=== PATIENT | female | born 1990 | race African-American/Black ===

== ENCOUNTER 2020-10-03 13:01 | Outpatient (REF) | payer OTHER, SELFPAY ==
[2020-10-03 14:13] LABS: MANUAL DIFF FLAG NO
[2020-10-03 14:17] LABS: Basophils Percent Auto 0.2 % (0-2); Eosinophils Percent Auto 0.9 % (0-4); Hematocrit 35.8 % (37-47); Hemoglobin 10.8 g/dl (12.0-16.0); Imm Gran Abs Auto 0.01 X10*3/uL (0.00-0.03); Imm Gran Pct Auto 0.2 % (0.0-0.4); Lymphocytes Absolute Auto 2.3 X10*3/uL (1.2-4.9); Lymphocytes Percent Auto 50.5 % (20-40); Mean Corpuscular HGB Conc 30.2 g/dl (31.0-35.0); Mean Corpuscular Hemoglobin 24.9 pg (27.0-33.0); Mean Corpuscular Volume 82.5 fL (80-98); Mean Platelet Volume 10.3 fL (9.4-12.3); Monocytes Absolute Auto 0.3 X10*3/uL (0.1-1.2); Monocytes Percent Auto 6.5 % (2-11); Neutrophils Absolute Auto 1.9 X10*3/uL (2.0-8.3); Neutrophils Percent Auto 41.7 % (45-73); Platelet Count 326 X10*3/uL (160-400); Red Blood Count 4.34 X10*6/uL (4.20-5.50); Red Cell Distribution Width 14.6 % (11.0-16.0); White Blood Count 4.6 X10*3/uL (4.8-10.8)
[2020-10-03 14:41] LABS: Anion Gap 10 (12-20); Blood Urea Nitrogen 10 mg/dL (9-16); Calcium 9.4 mg/dL (8.4-10.2); Carbon Dioxide 28 mmol/L (22-29); Chloride 104 mmol/L (96-108); Estimated Glomerular Filt Rate > 60; Glucose Fasting 76 mg/dL (60-99); Sodium 138 mmol/L (135-145)
== END 2020-10-03 13:02 | disposition home or self-care (01) ==
LOC: HO.LAB 13:01
PROVIDERS: Visit Provider Nurse Practitioner Family
DX: R07.9 Chest pain, unspecified (principal)
CPT/HCPCS: 36415; 80048; 85025

== ENCOUNTER 2020-10-10 10:21 | Outpatient (REF) | payer OTHER, SELFPAY ==
[2020-10-10 10:39] LABS: COVID-19 Test Positive (Negative)
== END 2020-10-10 10:22 | disposition home or self-care (01) ==
LOC: HO.EMPCOV 10:21
PROVIDERS: Visit Provider Internal Medicine
DX: Z20.828 Contact with and (suspected) exposure to other viral communicable diseases (principal)
CPT/HCPCS: 87635; C9803

== ENCOUNTER 2020-10-31 13:20 | Outpatient (REF) | payer OTHER, SELFPAY ==
[2020-11-01 08:31] LABS: BV Int Neg Control Negative (Negative); BV Int Pos Control Positive (Positive)
[2020-11-02 04:47] LABS: C. trachomatis RNA TMA NOT DETECTED (NOT DETECTED); N. gonorrhoeae RNA TMA NOT DETECTED (NOT DETECTED)
== END 2020-10-31 13:21 | disposition home or self-care (01) ==
LOC: HO.LAB 13:20
PROVIDERS: Visit Provider Advanced Practice Midwife
DX: N89.8 Other specified noninflammatory disorders of vagina (principal)
CPT/HCPCS: 82710; 87480; 87491; 87510; 87591; 87660

== ENCOUNTER 2020-12-19 09:24 | Outpatient (REF) | payer OTHER, SELFPAY | END 2020-12-19 09:25 | disposition home or self-care (01) | LOC: HO.LAB 09:24 | PROVIDERS: Visit Provider Internal Medicine | DX: Z20.822 Contact with and (suspected) exposure to COVID-19 (principal) | CPT/HCPCS: 36415; C9803; U0003; U0005 ==

== ENCOUNTER 2021-01-23 11:23 | Outpatient (REF) | payer OTHER, SELFPAY ==
[2021-01-23 17:53] LABS: CT PCR NOT DETECTED (Not Detect.); NG PCR NOT DETECTED (Not Detect.)
[2021-01-24 09:53] LABS: BV Int Neg Control Negative (Negative); BV Int Pos Control Positive (Positive)
== END 2021-01-23 11:24 | disposition home or self-care (01) ==
LOC: HO.LAB 11:23
PROVIDERS: Visit Provider Advanced Practice Midwife
DX: Z01.411 Encounter for gynecological examination (general) (routine) with abnormal findings (principal); Z30.431 Encounter for routine checking of intrauterine contraceptive device; N63.23 Unspecified lump in the left breast, lower outer quadrant; N63.12 Unspecified lump in the right breast, upper inner quadrant; Z20.2 Contact with and (suspected) exposure to infections with a predominantly sexual mode of transmission
CPT/HCPCS: 87480; 87491; 87510; 87591; 87660; 88142

== ENCOUNTER → 2021-03-01 08:53 | Outpatient (BNVA) | payer OTHER, SELFPAY | PROVIDERS: Visit Provider Advanced Practice Midwife ==

== ENCOUNTER 2021-03-15 12:31 | Outpatient (REF) | payer OTHER, SELFPAY ==
--- NOTE | ~2021-03-15 | US_ITS ---
Diagnostic right breast ultrasound is described in single combined report along with the diagnostic contralateral left breast under accession number [id number].
--- NOTE | ~2021-03-15 | US_ITS ---
EXAMINATION: US DIAGNOSTIC ULTRASOUND BREAST, RIGHT US DIAGNOSTIC ULTRASOUND BREAST, LEFT CLINICAL INFORMATION: Chronic cyclical pain left breast 12:00 to 1:00 for approximately one year. Clinical exam notes palpable areas of fullness 3:00 position left breast and 2:00 position right breast. Age 30. No prior breast imaging. No known family history breast cancer. No discharge. COMPARISON: None. TECHNIQUE: Ultrasound bilateral breasts is targeted to the areas of clinical concern using grayscale imaging and color Doppler without and with harmonics. Left breast is imaged 12:00 through 4:00 and right breast is imaged upper inner quadrant. FINDINGS: Right: There is no focal suspicious finding. There is no cystic or solid mass, architectural abnormality, duct ectasia, or edema in the soft tissue planes. Left: There is no focal suspicious finding. There is no cystic or solid mass, architectural abnormality, duct ectasia, or edema in the soft tissue planes. Results are discussed with the patient at time of visit. US/US breast LT limited IMPRESSION: Normal study. ASSESSMENT: BI-RADS 1: Negative RECOMMENDATION: 1. Patient's breast pain and clinical palpable areas should be managed based on the clinical impression. If clinically indicated, further evaluation may be considered with surgical consult. Decision to proceed with biopsy should be based on clinical grounds and degree of clinical concern. 2. Otherwise, routine annual screening mammography, beginning age 40, or earlier as clinical risk factors warrant. This patient's information was entered into a reminder system with a target due date for their next mammogram.
== END 2021-03-15 12:32 | disposition home or self-care (01) ==
LOC: HO.MAMMO 12:31
PROVIDERS: Visit Provider Advanced Practice Midwife
DX: N63.20 Unspecified lump in the left breast, unspecified quadrant (principal); N63.12 Unspecified lump in the right breast, upper inner quadrant
CPT/HCPCS: 76642

== ENCOUNTER 2021-06-12 13:51 | Outpatient (REF) | payer OTHER, SELFPAY ==
[2021-06-13 11:23] LABS: CT PCR NOT DETECTED (Not Detect.); NG PCR NOT DETECTED (Not Detect.)
[2021-06-13 11:51] LABS: BV Int Neg Control Negative (Negative); BV Int Pos Control Positive (Positive)
== END 2021-06-12 13:52 | disposition home or self-care (01) ==
LOC: HO.LAB 13:51
PROVIDERS: PCP Physician Assistant; Visit Provider Advanced Practice Midwife
DX: N76.0 Acute vaginitis (principal); B96.89 Other specified bacterial agents as the cause of diseases classified elsewhere; Z20.2 Contact with and (suspected) exposure to infections with a predominantly sexual mode of transmission
CPT/HCPCS: 87480; 87491; 87510; 87591; 87660

== ENCOUNTER → 2021-08-06 11:49 | Outpatient (BNVA) | payer OTHER, SELFPAY | PROVIDERS: PCP Physician Assistant; Visit Provider Advanced Practice Midwife ==

== ENCOUNTER 2021-09-04 08:22 | Emergency (ER) | payer OTHER, SELFPAY ==
--- NOTE | ~2021-09-04 | XR_ITS ---
EXAMINATION: XR CHEST CLINICAL INFORMATION: Chest pain COMPARISON: None TECHNIQUE: AP portable view of the chest was obtained. FINDINGS: No significant abnormality is noted involving the heart, lungs, mediastinum, bony thorax or soft tissues. XR/XR chest 1V IMPRESSION: No acute disease.
[2021-09-04 08:32] VITALS: BP 125/80; PULSE 81; RESP 18; TEMP 36.9; O2SAT 100; BMI 23.7
--- NOTE | 2021-09-04 08:35 | ECG_ITS ---
Test Reason : chest pain Blood Pressure : / mmHG Vent. Rate : 073 BPM Atrial Rate : 073 BPM P-R Int : 156 ms QRS Dur : 072 ms QT Int : 342 ms P-R-T Axes : 069 060 043 degrees QTc Int : 376 ms Normal sinus rhythm Normal ECG No previous ECGs available Referred By: Stacia Carrera Electronically Signed By:QUYEN HUTTON MD
[2021-09-04 09:13] LABS: MANUAL DIFF FLAG NO
[2021-09-04 09:17] LABS: Eosinophils Percent Auto 0.7 % (0-4); Hemoglobin 9.4 g/dl (12.0-16.0); Lymphocytes Percent Auto 46.8 % (20-40); Mean Corpuscular HGB Conc 30.3 g/dl (31.0-35.0); Mean Corpuscular Hemoglobin 23.9 pg (27.0-33.0); Mean Corpuscular Volume 78.7 fL (80-98); Mean Platelet Volume 9.8 fL (9.4-12.3); Monocytes Absolute Auto 0.5 X10*3/uL (0.1-1.2); Monocytes Percent Auto 10.6 % (2-11); Neutrophils Absolute Auto 1.8 X10*3/uL (2.0-8.3); Neutrophils Percent Auto 41.9 % (45-73); Platelet Count 314 X10*3/uL (160-400); Red Blood Count 3.94 X10*6/uL (4.20-5.50); Red Cell Distribution Width 14.2 % (11.0-16.0); White Blood Count 4.3 X10*3/uL (4.8-10.8)
[2021-09-04 09:24] LABS: D Dimer < 200 NG/ML
[2021-09-04 09:26] VITALS: BP 108/65; PULSE 79; RESP 20; TEMP 37.1; O2SAT 100
[2021-09-04 09:31] LABS: Appearance Urine HAZY; Color Urine YELLOW; Glucose Urine UA NEG (NEG); Leukocyte Esterase Urine TRACE (NEG); Nitrite Urine NEG (NEG); Specific Gravity - Urine >= 1.030 (1.005-1.025); UACC Culture Trigger YES; Urine Blood NEG (NEG); Urine Ketones NEG (NEG); Urine Protein NEG (NEG-TRACE)
[2021-09-04 09:32] LABS: Anion Gap 11 (12-20); Blood Urea Nitrogen 10 mg/dL (9-16); Calcium 8.7 mg/dL (8.4-10.2); Carbon Dioxide 22 mmol/L (22-29); Chloride 108 mmol/L (96-108); Creatinine Clr Calc Pharmacy 95.9; Estimated Glomerular Filt Rate > 60; Glucose Random 92 mg/dL (60-115); Lipase 16 U/L (8-78); Potassium 4.1 mmol/L (3.3-5.1); Sodium 137 mmol/L (135-145)
[2021-09-04 09:33] LABS: UPreg QC Valid YES; Urine Pregnancy NEGATIVE (NEGATIVE)
[2021-09-04 09:36] LABS: Troponin-I High Sensitivity < 3.5 ng/L (<3.5-17.0)
[2021-09-04 09:40] LABS: RBC Urine 0-2 /HPF (0); Squamous Epithelial Cell Urine 1+ /LPF
[2021-09-04 09:41] LABS: Bacteria Urine TRACE /LPF; Mucus Urine 2+ /LPF
--- NOTE | 2021-09-04 09:51 | ED_ITS ---
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 Chest pain for over a year since started to wear face mask, pain non specific description in the chest, no radiation, described as dull aching chest pain, aggravated by wearing a face mask, relieved by taking the face mask off, no recent travel, no lower extremity swelling or tenderness. No family history of heart disease or PE or young in the family. Patient otherwise healthy with no other medical problem. Related Data Home Medications Medication Instructions Recorded Confirmed copper 380 square mm intrauterine INTRAUTERINE 01/23/21 06/12/21 device (FondeadoraGard T 380A) Previous Rx's Medication Instructions Recorded albuterol sulfate 90 mcg/actuation 1 inh INHALATION Q4H PRN 30 Days 03/26/21 aerosol inhaler #8.5 g vitamin with calcium 1 tab PO DAILY #30 tab 08/06/21 no.72-iron 27 mg-folic acid 1 mg tablet ( Vitamins Plus Low Iron) Allergies Allergy/AdvReac Type Severity Reaction Status Date / Time metronidazole Allergy Mild Itching Verified 06/12/21 14:20 Review of Systems Review of Systems: All other systems are reviewed and are negative Constitutional: Reports as per HPI and Reports no additional constitutional complaints Eyes: Reports as per HPI and Reports no additional eye complaints Reports system reviewed and no additional complaints, except as documented Cardiovascular: Reports as per HPI and Reports no additional cardiovascular complaints Respiratory: Reports as per HPI and Reports no additional respiratory complaints Gastrointestinal: Reports as per HPI and Reports no additional gastrointestinal complaints Genitourinary: Reports no additional female genitourinary complaints Musculoskeletal: Reports no additional musculoskeletal complaints Skin/Breast: Reports system reviewed and no additional complaints, except as do cu Psychiatric: Reports no additional psychiatric complaints Endocrine: Reports no additional endocrine complaints Hematologic/Lymphatic: Reports no additional hematologic/lymphatic complaints Allergic/Immunologic: Reports no additional allergic/immunologic complaints Reports system reviewed and no additional complaints, except as documented and Reports Abnormal speech present [facility] Past Medical History Medical History Chest pain Family History Family History Father No problems noted. Mother No problems noted. Maternal Grandfather Cancer Diabetes Social History Social History Alcohol intake: never Advance Directives: No Advance Directives Information Provided: No Patient : No Gender identity: Female Physical Exam Vital Signs: Vital Signs: Last Vital Signs Temp 98.8 F 09/04/21 09:26 Pulse 79 09/04/21 09:26 Resp 20 09/04/21 09:26 BP 108/65 09/04/21 09:26 Pulse Ox 100 09/04/21 09:26 Body Mass Index 23.7 Vital signs have been reviewed as appeared to be correct. Blood pressure normal. Heart rate normal. Respiration rate normal. Temperature normal. Oxygen saturation normal. Appearance: Alert. Oriented X3. No acute distress. Head: Normal external exam. Normocephalic. Atraumatic. No Tyson signs noted. No raccoon eyes noted Eyes: PERRLA. EOMI. Conjunctiva and sclera normal. Eyelids normal. ENT: TM's Normal. Pharynx normal. Uvula midline. Moist mucous membranes. No trismus noted. No drooling noted. No muffled voice noted. Neck: Normal inspection. Neck supple. FROM. No adenopathy. Thyroid Normal. No meningeal signs. No neck mass noted. CVS: Normal heart rate and rhythm. Heart sound normal. No murmurs noted. Pulses normal throughout. Respiratory: No respiratory distress. Painless inspiration. Breath sounds normal. No wheezes/rales/rhonchi noted. Chest nontender. No accessory muscle usage noted or decreased air movement noted. Abdomen: Soft and nontender. Bowel sounds normal in all 4 quadrants. No distention noted. No organomegaly noted. No visible injury noted. Back: No CVA tenderness. Full range of motion noted. Skin: Skin warm and dry. Normal skin color. Normal skin turgor. No rashes/lesions/lacerations noted. Extremities: No lower extremity edema. Extremities exhibit normal range of motion. Extremities nontender. Neuro: Oriented X 3. Cranial nerve exam: II-XII are grossly intact No motor deficit. No sensory deficit. Reflexes normal. Course Course Course Narrative: Assessment and plan. Nonspecific chest pain, HEART score of 0, unremarkable EKG, troponin is negative, D-dimer also is unremarkable. Patient is anemic patient is mostly vegetarian do not eat red meat, patient was instructed to discuss with the PCP to adjust her diet or starting on iron. MDM - Chest Pain Medical Records Data Attestation: I reviewed the patient's medical records. Lab Data Attestation: I reviewed the patient's lab results. Result diagrams: 09/04/21 09:07 09/04/21 09:07 Labs: Lab Results 09/04/21 09/04/21 09/04/21 Range/Units 09:07 09:07 09:07 WBC 4.3 L (4.8-10.8) X10*3/uL RBC 3.94 L (4.20-5.50) X10*6/uL Hgb 9.4 L (12.0-16.0) g/dl Hct 31.0 L (37-47) % MCV 78.7 L (80-98) fL MCH 23.9 L (27.0-33.0) pg MCHC 30.3 L (31.0-35.0) g/dl RDW 14.2 (11.0-16.0) % Plt Count 314 (160-400) X10*3/uL MPV 9.8 (9.4-12.3) fL Immature Gran % (Auto) 0.0 (0.0-0.4) % Neut % (Auto) 41.9 L (45-73) % Lymph % (Auto) 46.8 H (20-40) % Hooker % (Auto) 10.6 (2-11) % Eos % (Auto) 0.7 (0-4) % Baso % (Auto) 0.0 (0-2) % Lymph # (Auto) 2.0 (1.2-4.9) X10*3/uL Hooker # (Auto) 0.5 (0.1-1.2) X10*3/uL Eos # (Auto) 0.0 (0.0-0.4) X10*3/uL Baso # (Auto) 0.0 (0.0-0.2) X10*3/uL Abs Immat Gran (auto) 0.00 (0.00-0.03) X10*3/uL Absolute Neuts (auto) 1.8 L (2.0-8.3) X10*3/uL Absolute Nucleated RBC 0.000 (0.0-0.012) X10*3/uL Nucleated RBC % (auto) 0.0 (0.0-0.2) /100WBC D-Dimer NG/ML Sodium 137 (135-145) mmol/L Potassium 4.1 (3.3-5.1) mmol/L Chloride 108 (96-108) mmol/L Carbon Dioxide 22 (22-29) mmol/L Anion Gap 11 L (12-20) BUN 10 (9-16) mg/dL Creatinine 0.81 (0.5-1.4) mg/dL Estim Creat Clear Calc 95.9 Estimated GFR > 60 Random Glucose 92 (60-115) mg/dL Calcium 8.7 D (8.4-10.2) mg/dL Troponin I High Sens < 3.5 (<3.5-17.0) ng/L Lipase 16 (8-78) U/L Urine Color Urine Appearance Urine pH (5.0-8.0) Ur Specific Chelsea (1.005-1.025) Urine Protein (NEG-TRACE) MG/DL Urine Glucose (UA) (NEG) MG/DL Urine Ketones (NEG) MG/DL Urine Blood (NEG) Urine Nitrite (NEG) Ur Leukocyte Esterase (NEG) Urine RBC (0) /HPF Urine WBC (0-4) /HPF Ur Squamous Epith Cells /LPF Urine Bacteria /LPF Urine Mucus /LPF Urine Test (NEGATIVE) 09/04/21 09/04/21 09/04/21 Range/Units 09:07 09:24 09:24 WBC (4.8-10.8) X10*3/uL RBC (4.20-5.50) X10*6/uL Hgb (12.0-16.0) g/dl Hct (37-47) % MCV (80-98) fL MCH (27.0-33.0) pg MCHC (31.0-35.0) g/dl RDW (11.0-16.0) % Plt Count (160-400) X10*3/uL MPV (9.4-12.3) fL Immature Gran % (Auto) (0.0-0.4) % Neut % (Auto) (45-73) % Lymph % (Auto) (20-40) % Hooker % (Auto) (2-11) % Eos % (Auto) (0-4) % Baso % (Auto) (0-2) % Lymph # (Auto) (1.2-4.9) X10*3/uL Hooker # (Auto) (0.1-1.2) X10*3/uL Eos # (Auto) (0.0-0.4) X10*3/uL Baso # (Auto) (0.0-0.2) X10*3/uL Abs Immat Gran (auto) (0.00-0.03) X10*3/uL Absolute Neuts (auto) (2.0-8.3) X10*3/uL Absolute Nucleated RBC (0.0-0.012) X10*3/uL Nucleated RBC % (auto) (0.0-0.2) /100WBC D-Dimer < 200 NG/ML Sodium (135-145) mmol/L Potassium (3.3-5.1) mmol/L Chloride (96-108) mmol/L Carbon Dioxide (22-29) mmol/L Anion Gap (12-20) BUN (9-16) mg/dL Creatinine (0.5-1.4) mg/dL Estim Creat Clear Calc Estimated GFR Random Glucose (60-115) mg/dL Calcium (8.4-10.2) mg/dL Troponin I High Sens (<3.5-17.0) ng/L Lipase (8-78) U/L Urine Color YELLOW Urine Appearance HAZY Urine pH 6.0 (5.0-8.0) Ur Specific Chelsea >= 1.030 H (1.005-1.025) Urine Protein NEG (NEG-TRACE) MG/DL Urine Glucose (UA) NEG (NEG) MG/DL Urine Ketones NEG (NEG) MG/DL Urine Blood NEG (NEG) Urine Nitrite NEG (NEG) Ur Leukocyte Esterase TRACE H (NEG) Urine RBC 0-2 (0) /HPF Urine WBC 1-4 (0-4) /HPF Ur Squamous Epith Cells 1+ /LPF Urine Bacteria TRACE /LPF Urine Mucus 2+ /LPF Urine Test NEGATIVE (NEGATIVE) Imaging Data Chest x-ray: Radiologist's impression: No acute disease. ECG Data ECG #1: Attestation: I personally reviewed and interpreted this ECG as follows: Interpretation: Normal sinus rhythm at 73 beats per minute, normal intervals, normal axis deviation, no ST-T changes. Discharge Plan Discharge Clinical Impression: Chest pain, Anemia Patient Disposition: Home, Self-Care Instructions: Anemia (ED) Prescriptions: No Action albuterol sulfate 90 mcg/actuation HFA aerosol inhaler 1 inh inhalation Q4H PRN (Reason: shortness of breath or wheezing) 30 Days Qty: 8.5 RF: 0 ParaGard T 380A 380 square mm intrauterine device intrauterine RF: 0 Vitamin Plus Low Iron 27 mg iron- 1 mg tablet 1 tab PO DAILY Qty: 30 RF: 11 Referrals: Physician,Unknown J [Primary Care Provider] - 2 days Stand Alone Forms: Work/School Release
== END 2021-09-04 10:17 | disposition home or self-care (01) ==
PROVIDERS: Emergency Provider Emergency Medicine
DX: R07.9 Chest pain, unspecified (principal); D64.9 Anemia, unspecified; N39.0 Urinary tract infection, site not specified
CPT/HCPCS: 36415; 71045; 80048; 81001; 81025; 83690; 84484; 85025; 85379; 87086; 87088; 87186; 93005; 99283

== ENCOUNTER → 2022-03-24 08:06 | Outpatient (BNVA) | payer OTHER, SELFPAY | PROVIDERS: Visit Provider Advanced Practice Midwife | DX: Z30.432 Encounter for removal of intrauterine contraceptive device (principal) | CPT/HCPCS: 58301 ==

== ENCOUNTER 2022-04-14 11:04 | Outpatient (REF) | payer OTHER, SELFPAY ==
[2022-04-15 06:29] LABS: CT PCR NOT DETECTED (Not Detect.); NG PCR NOT DETECTED (Not Detect.)
[2022-04-15 11:02] LABS: BV Int Neg Control Negative (Negative); BV Int Pos Control Positive (Positive)
== END 2022-04-14 11:05 | disposition home or self-care (01) ==
LOC: HO.LAB 11:04
PROVIDERS: Visit Provider Advanced Practice Midwife
DX: Z01.419 Encounter for gynecological examination (general) (routine) without abnormal findings (principal); Z11.3 Encounter for screening for infections with a predominantly sexual mode of transmission; Z20.2 Contact with and (suspected) exposure to infections with a predominantly sexual mode of transmission
CPT/HCPCS: 87480; 87491; 87510; 87591; 87660

== ENCOUNTER 2022-04-17 08:15 | Outpatient (REF) | payer OTHER, SELFPAY ==
[2022-04-17 08:44] LABS: Eosinophils Percent Auto 0.4 % (0-4); Hematocrit 36.8 % (37.0-47.0); Hemoglobin 11.1 g/dl (12.0-16.0); Imm Gran Abs Auto 0.01 X10*3/uL (0.00-0.03); Imm Gran Pct Auto 0.4 % (0.0-0.4); Lymphocytes Absolute Auto 1.8 X10*3/uL (1.2-4.9); MANUAL DIFF FLAG SCAN; Mean Corpuscular HGB Conc 30.2 g/dl (31.0-35.0); Mean Corpuscular Hemoglobin 23.7 pg (27.0-33.0); Mean Corpuscular Volume 78.6 fL (80.0-98.0); Mean Platelet Volume 9.8 fL (9.4-12.3); Monocytes Absolute Auto 0.2 X10*3/uL (0.1-1.2); Neutrophils Absolute Auto 0.6 x10*3/uL (2.0-8.3); Neutrophils Percent Auto 24.2 % (45-73); Platelet Count 309 X10*3/uL (160-400); Red Blood Count 4.68 X10*6/uL (4.20-5.50); Red Cell Distribution Width 15.6 % (11.0-16.0); SCAN SMEAR FLAG 1; White Blood Count 2.6 X10*3/uL (4.8-10.8)
[2022-04-17 09:12] LABS: Alanine Aminotransferase 12 U/L (0-31); Albumin Level 4.5 g/dL (3.5-5.0); Alkaline Phosphatase 35 U/L (39-117); Anion Gap 9 (12-20); Aspartate Amino Transferase 22 U/L (5-31); Bilirubin Total 0.4 mg/dL (0.0-1.0); Blood Urea Nitrogen 9 mg/dL (9-16); Calcium 9.2 mg/dL (8.4-10.2); Carbon Dioxide 27 mmol/L (22-29); Chloride 107 mmol/L (96-108); Cholesterol 144 mg/dL; Estimated Glomerular Filt Rate > 60; Glucose Fasting 96 mg/dL (60-99); HDL Cholesterol 46 mg/dL; Iron 34 mcg/dL (30-160); LDL Cholesterol Calculated 93 mg/dl; Percent Iron Saturation 8 % (15-50); Potassium 4.2 mmol/L (3.3-5.1); Sodium 139 mmol/L (135-145); Total Iron Binding Capacity 402 mcg/dL (228-428); Total Protein 7.7 g/dL (6.5-8.0); Triglycerides 25 mg/dL; Unsaturated Iron Binding 368 ug/dL
[2022-04-17 09:14] LABS: SLIDE REVIEW VERIFIED
[2022-04-19 20:56] LABS: TS Negative Control Passed; TS Panel A 0; TS Panel B 0; TS Positive Control Passed; TSpotTB Negative (Negative)
== END 2022-04-17 08:16 | disposition home or self-care (01) ==
LOC: HO.LAB 08:15
PROVIDERS: PCP Nurse Practitioner Family; Visit Provider Nurse Practitioner Family
DX: D64.9 Anemia, unspecified (principal); E78.00 Pure hypercholesterolemia, unspecified; I10 Essential (primary) hypertension; Z11.1 Encounter for screening for respiratory tuberculosis
CPT/HCPCS: 36415; 80053; 80061; 83540; 85025; 86481

== ENCOUNTER 2024-02-17 10:28 | Outpatient (REF) | payer SELFPAY ==
[2024-02-17 10:58] LABS: Appearance Urine Cloudy; Color Urine Yellow; Glucose Urine UA Negative (Negative); Leukocyte Esterase Urine Small (1+) (Negative); Nitrite Urine Negative (Negative); PH 5.5 (5.0-9.0); UMIC TRIGGER UACC YES; Urine Blood Negative (Negative); Urine Ketones Negative (Negative); Urine Protein Negative (Neg-Trace)
[2024-02-17 10:59] LABS: UPreg QC Valid YES; Urine Pregnancy NEGATIVE (NEGATIVE)
[2024-02-17 11:01] LABS: Bacteria Urine 1+ (None Seen); Hyaline Casts Urine 0-2 /LPF (0-2); RBC Urine 0-2 /HPF (0-2); UACC Culture Trigger YES; WBC Urine >50 /HPF (0-5)
== END 2024-02-17 10:29 | disposition home or self-care (01) ==
LOC: HO.LAB 10:28
PROVIDERS: Visit Provider Internal Medicine
DX: Z13.89 Encounter for screening for other disorder (principal)
CPT/HCPCS: 81001; 81025; 87086; 87088; 87186

== ENCOUNTER 2024-07-29 14:07 | Outpatient (AMB) | payer OTHER, SELFPAY ==
[2024-07-29 14:11] VITALS: BP 118/70; PULSE 93; O2SAT 98; BMI 23.9
--- NOTE | 2024-07-29 14:11 | A.OFFPC_ITS ---
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 Accompanied by: Son Allergies metronidazole Allergy (Mild, Verified 07/29/24 14:31) Itching Medication List - Last Reconciled 07/29/24 by Meenu Keyes PA-C albuterol sulfate 90 mcg/actuation 1 inh inhalation Q4H PRN 30 days Tobacco use date assessed: 07/29/24 Dental Screening Dental Screen Date: 07/29/24 Did you have a dental visit in the last 12 months?: Yes Did you have a dental problem in the last 6 months where you did not have access to dental care?: No Was dental information given to patient?: Patient has dentist HPI establish care HPI Details 34 year old female with past history of asthma and anemia coming to the office for the first time. She regularly follows with gynecology. 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 She was seen in urgent care last week for left-sided back pain and given a course of steroids which helped very mildly. Has no other concerns at this time [facility] Medical History Chest pain Surgical History No pertinent past surgical history Family History Father No problems noted. Mother No problems noted. Maternal Grandfather Cancer Diabetes Social History Household Members: Spouse Housing: House Are you a primary animal care service worker to a significant other at home: No Do you presently have visiting nurse or other home services: No Alcohol intake: current Alcohol intake frequency: holidays/special occasions only Patient Tobacco Use Status: Never used Tobacco Tobacco use type: Cigarette e-Cigarette/Vaping Use: Never Used Second Hand Smoke Exposure: No service: No Current occupational status: employed Gender identity: Female Cognitive needs: No Hearing needs: No Vision needs: Yes Female Reproductive History Menstrual Age of Menarche: 15 Questionnaire PHQ-9 Over the last 2 weeks, how often have you been bothered by any of the following problems? 1. Little interest or pleasure in doing things: not at all 2. Feeling down, depressed, or hopeless: not at all 3. Trouble falling or staying asleep, or sleeping too much: not at all 4. Feeling tired or having little energy: not at all 5. Poor appetite or overeating: not at all 6. Feeling bad about yourself - or that you are a failure or have let yourself or your family down: not at all 7. Trouble concentrating on things, such as reading the newspaper or watching television: not at all 8. Moving or speaking so slowly that other people could have noticed. Or the opposite - being so fidgety or restless that you have been moving around a lot more than usual: not at all 9. Thoughts that you would be better off or of hurting yourself in some way: not at all Total score: 0 Depression Screening Interpretation: Negative Depression Screening Done: Yes Source: Developed by Drs. Rafita Welsh, Marii Rodgers, Brennen Ivan and colleagues, with an educational lydia from [employer]. Thrive Questionnaire Date Thrive assessed: 07/29/24 I am a: Patient What is your living situation today?: I have a steady place to live Within the past 12 months, did the food you bought not last and you didn't have the money to get more?: I choose not to answer this question Within the past 12 months, did you worry whether your food would run out before you got money to buy more?: Never true Do you have trouble paying for medicines?: No Do you have trouble getting transportation to medical appointments?: No Do you have trouble paying your heating and electricity bill?: No Do you have trouble taking care of your child, family member or friend?: No Do you have trouble with day-to-day activities such as bathing, preparing meals, shopping, managing finances, etc.?: No Are you currently unemployed and looking for a job?: No Are you interested in more education?: No Please select the resources that you would like help with: Food Currently or been in a relationship where the following occur: No concerns reported THRIVE Score: 0 AUDIT C Alcohol Use Questionnaire (AUDIT-C) 1. How often do you have a drink containing alcohol?: Never Total Score: 0 DANIEL-7 AMB Questionnaire DANIEL-7 Date DANIEL - 7 assessed: 07/29/24 Feeling nervous, anxious, or on edge: 1 = Several days (Anxiety before exams at school and overthinks a lot.) Not being able to stop or control worryin = Not at all Worrying too much about different things: 0 = Not at all Trouble relaxin = Not at all Being so restless that it is hard to sit still: 0 = Not at all Becoming easily annoyed or irritable: 0 = Not at all Feeling afraid as if something awful might happen: 0 = Not at all Total DANIEL-7 score (0-4 normal; 5-9 mild; 10-14 moderate; 15-21 severe): 1 Source: Developed by Drs. Rafita Welsh, Marii Rodgers, Brennen Ivan and colleagues, with an educational lydia from [employer]. Review of Systems Const Denies body aches, Denies fatigue, Denies fever(s), Denies frequent falls, Denies headache(s) and Denies weakness Eyes Reports no additional complaints and Denies change in vision ENT Denies dysphagia, Denies dizziness, Denies facial pain, Denies headache(s), Denies nasal congestion and Denies odynophagia Card Denies chest pain, Denies syncope, Denies irregular heart rhythm, Denies leg edema, Denies lightheadedness and Denies dyspnea Resp Denies cough and Denies dyspnea GI Details: hemorrhoid the occasionally prolapses Denies constipation, Denies dysphagia, Denies dyspepsia, Denies diarrhea, Denies nausea, Denies odynophagia and Denies vomiting Denies urinary frequency, Denies dysuria, Denies urinary hesitancy and Denies urinary urgency Musc Reports back pain and Denies myalgias Skin/Breast Reports system reviewed and no additional complaints, except as documented Neuro Denies dizziness, Denies syncope, Denies frequent falls, Denies headache(s) and Denies weakness Psych Reports no additional complaints Endo Denies fatigue Physical exam (Primary Care) Vital Signs: Last Vital Signs Pulse 93 07/29/24 14:11 BP 118/70 09/20/24 14:11 Pulse Ox 98 07/29/24 14:11 Oxygen Delivery Method Room Air 07/29/24 14:11 BMI result Body Mass Index 23.9 Tobacco/Smoking Status: Tobacco use Status Tobacco use date assessed 07/29/24 07/29/24 14:13 Patient Tobacco Use Status Never used Tobacco 07/29/24 14:13 Tobacco use type Cigarette 07/29/24 14:13 e-Cigarette/Vaping Use Never Used 07/29/24 14:18 PHQ-9: PHQ-9 Score PHQ-9: Total score 0 07/29/24 14:18 Depression Screening Interpretation: Negative Thrive Assessment: Date of Thrive Assessment Date Thrive assessed 07/29/24 07/29/24 14:13 Currently or been in a relationship where the following occur: No concerns reported Const General: cooperative, healthy appearing, comfortable and no acute distress Orientation/consciousness: patient oriented x3 HENMT Head: Yes normocephalic Ears: hearing grossly normal bilaterally, external ears normal, TM's normal bi laterally and EAC's normal General nose exam: Normal external nose present Face and sinus: Yes normal facial exam and Yes sinuses nontender Mouth: Normal oral and palatal mucosa present and tongue normal Throat: Yes posterior oropharynx normal Eyes General: appearance normal, both eyes and all related structures Conjunctivae: conjunctivae normal Pupils: Equal, round and reactive pupils present EOM: EOMs intact bilaterally and No Nystagmus present Neck Neck: Yes normal visual inspection, Yes full ROM and Yes no lymphadenopathy Chest Chest palpation & inspection: normal inspection of the chest Resp Effort & Inspection: normal respiratory effort Auscultation: clear to auscultation bilaterally, no crackles, no rales, no rhonchi, no wheezes and breath sounds present Cardio Rate: regular rate Rhythm: regular rhythm Peripheral pulses: radial pulses present and dorsalis pedis present GI Inspection: Yes normal to inspection and No Abdominal wall edema Palpation (GI): Soft to palpation, not firm and nontender Auscultation: normal bowel sounds Rectal Exam - Female: deferred General: Yes no CVA tenderness Back/Spine/Pelvis Other: tenderness to left thoracic paraspinal muscles Back: no CVA tenderness Skin General skin exam: no rashes or lesions noted Neuro General: patient oriented x3 Cranial nerves: Yes Equal, round and reactive pupils present, Yes Midline tongue present, Yes Ability to bilaterally elevate shoulders present and No Nystagmus present Gait exam (Neuro): Normal gait present Extrem General: Yes normal to inspection, Yes full ROM, No no pedal edema and No edema Psych Speech and movement: Normal speech and movement present Affect: normal affect Insight: Good insight present (Psych) Judgement: Good judgement present (Psych) Assessment and Plan Assessment & Plan (1) Asthma: Code(s): J45.909 - Unspecified asthma, uncomplicated Plan: Previously diagnosed with asthma and uses her inhaler only as needed. Has not had to use her inhaler in several weeks and does not have any nighttime awakenings of shortness of breath. Continue to avoid triggers such as allergens smoke. (2) Anxiety: Code(s): F41.9 - Anxiety disorder, unspecified Plan: Patient states her anxiety is primarily centered around test taking and feels she can manage anxiety well and declines counseling or medication at this time. (3) Anemia: Code(s): D64.9 - Anemia, unspecified Plan: Ordered for updated blood work for further evaluation. (4) Back pain: Code(s): M54.9 - Dorsalgia, unspecified Plan: Patient has tenderness to palpation over left thoracic paraspinal muscles. She does mentioned she regularly moves patient is in occasionally will lift wrong. He has recently evaluated by urgent care who gave her a course of steroids which helped very mildly. Advised stretching and we will give muscle relaxer as needed for pain and may use Tylenol and ibuprofen for pain as well. Ordered for urinalysis to evaluate for possible UTI as well. (5) Physical exam: Code(s): Z00.00 - Encounter for general adult medical examination without abnormal findings Plan: Patient is up-to-date on all recommended routine screenings and vaccinations for her age. She regularly follows with gynecology and has a Pap smear scheduled for later this year. Updated blood work ordered at today's visit. We will follow up in 1 year sooner if new problems arise or pending blood work results. (6) Hemorrhoids: Code(s): K64.9 - Unspecified hemorrhoids Plan: Patient has a history of hemorrhoids and they will occasionally prolapse causing her discomfort and bleeding. Advised patient to avoid constipation and we can refer to general surgery if they become bothersome. Plan This note was constructed using voice recognition software. While every effort has been made to ensure accuracy and support dba, still areas may have been included sometimes these areas may affect the content or meeting of the given symptoms. Total time spent caring for the patient today was 30 minutes. This includes time spent before the visit reviewing the chart, time spent during the visit, and time spent after the visit and documentation. Orders: Orders Vitamin B12 and Folate Today Z00.00 - Encounter for general adult medical examination without abnormal findings UA CC w/rflx Micro + Cult Today R35.89 - Other polyuria Comprehensive Met. Panel Today Z00.00 - Encounter for general adult medical examination without abnormal findings Complete Blood Count Auto Diff Today Z00.00 - Encounter for general adult medical examination without abnormal findings Free T4 (Free Thyroxine) Today Z00.00 - Encounter for general adult medical examination without abnormal findings TSH reflex Free T4 Today Z00.00 - Encounter for general adult medical examination without abnormal findings Vitamin D 25-OH (D2 and D3) Today Z00.00 - Encounter for general adult medical examination without abnormal findings Medications: New cyclobenzaprine 5 mg PO BEDTIME 14 tabs 0RF cyclobenzaprine 5 mg PO BEDTIME 14 tabs 0RF Refilled albuterol sulfate 90 mcg/actuation 1 inh inhalation Q4H 30 days PRN 8.5 grams 0RF shortness of breath or wheezing J45.909 - Unspecified asthma, uncomplicated Coding Level of Care Code New Pt Level 3 (20184) New Pt Prev Care 18-39yr(81431 Diagnoses Asthma J45.909 Anxiety F41.9 Anemia D64.9 Back pain M54.9 Physical exam Z00.00 Hemorrhoids K64.9
== END 2024-07-29 14:47 | disposition home or self-care (01) ==
DX: Z00.00 Encounter for general adult medical examination without abnormal findings (principal); J45.909 Unspecified asthma, uncomplicated; M54.9 Dorsalgia, unspecified; F41.9 Anxiety disorder, unspecified; D64.9 Anemia, unspecified; K64.9 Unspecified hemorrhoids

== ENCOUNTER → 2024-07-29 14:07 | Outpatient (BNVA) | payer OTHER, SELFPAY | DX: Z00.00 Encounter for general adult medical examination without abnormal findings (principal); J45.909 Unspecified asthma, uncomplicated; F41.9 Anxiety disorder, unspecified; D64.9 Anemia, unspecified; M54.9 Dorsalgia, unspecified; K64.9 Unspecified hemorrhoids; Z79.52 Long term (current) use of systemic steroids | CPT/HCPCS: 99202; 99385 ==

== ENCOUNTER 2024-08-04 15:56 | Outpatient (REF) | payer OTHER, SELFPAY ==
[2024-08-04 18:13] LABS: Basophils Percent Auto 0.4 % (0-2); Eosinophils Absolute Auto 0.1 X10*3/uL (0.0-0.4); Eosinophils Percent Auto 1.2 % (0-4); Hematocrit 37.5 % (37.0-47.0); Hemoglobin 11.9 g/dl (12.0-16.0); Imm Gran Abs Auto 0.04 X10*3/uL (0.00-0.03); Imm Gran Pct Auto 0.8 % (0.0-0.4); Lymphocytes Absolute Auto 1.8 X10*3/uL (1.2-4.9); Lymphocytes Percent Auto 36.6 % (20-40); MANUAL DIFF FLAG NO; Mean Corpuscular HGB Conc 31.7 g/dl (31.0-35.0); Mean Corpuscular Hemoglobin 26.4 pg (27.0-33.0); Mean Corpuscular Volume 83.3 fL (80.0-98.0); Mean Platelet Volume 10.2 fL (9.4-12.3); Monocytes Absolute Auto 0.5 X10*3/uL (0.1-1.2); Monocytes Percent Auto 9.7 % (2-11); Neutrophils Absolute Auto 2.5 x10*3/uL (2.0-8.3); Neutrophils Percent Auto 51.3 % (45-73); Platelet Count 255 X10*3/uL (160-400); Red Cell Distribution Width 13.7 % (11.0-16.0)
[2024-08-04 18:15] LABS: Appearance Urine Clear; Color Urine Yellow; Glucose Urine UA Negative (Negative); Leukocyte Esterase Urine Small (1+) (Negative); Nitrite Urine Negative (Negative); UMIC TRIGGER UACC YES; Urine Blood Large (3+) (Negative); Urine Ketones Negative (Negative); Urine Protein Trace mg/dL (Neg-Trace)
[2024-08-04 18:35] LABS: Bacteria Urine 1+ (None Seen); Hyaline Casts Urine 0-2 /LPF (0-2); RBC Urine 0-2 /HPF (0-2); Squamous Epithelial Cell Urine 0-2 /HPF (0-2); UACC Culture Trigger YES
[2024-08-04 18:52] LABS: Alanine Aminotransferase 8 U/L (0-31); Albumin Level 4.3 g/dL (3.5-5.0); Alkaline Phosphatase 32 U/L (39-117); Anion Gap 12 (12-20); Aspartate Amino Transferase 16 U/L (5-31); Bilirubin Total 0.3 mg/dL (0.0-1.0); Blood Urea Nitrogen 10 mg/dL (9-16); Calcium 9.6 mg/dL (8.4-10.2); Carbon Dioxide 25 mmol/L (22-29); Chloride 107 mmol/L (96-108); Estimated Glomerular Filt Rate > 60; Glucose Random 84 mg/dL (60-115); Potassium 3.8 mmol/L (3.3-5.1); Sodium 140 mmol/L (135-145); Total Protein 7.3 g/dL (6.5-8.0)
[2024-08-04 19:08] LABS: Free T4 (Free Thyroxine) 0.92 ng/dL (0.71-1.85); TSH reflex Free T4 1.71 uIU/mL (0.32-4.0)
[2024-08-04 19:20] LABS: Vitamin B12 321 pg/mL (200-900)
[2024-08-08 16:24] LABS: Vitamin D 25-OH, D2 <4 ng/mL; Vitamin D 25-OH, D3 15 ng/mL; Vitamin D 25-OH, Total 15 ng/mL (30-100)
== END 2024-08-04 15:57 | disposition home or self-care (01) ==
LOC: HO.LAB 15:56
DX: Z00.00 Encounter for general adult medical examination without abnormal findings (principal)
CPT/HCPCS: 36415; 80053; 81001; 82306; 82607; 82746; 84439; 84443; 85025; 87086; 87088; 87186

== ENCOUNTER 2025-06-06 08:03 | Outpatient (REF) | payer OTHER, SELFPAY ==
[2025-06-06 15:35] LABS: Bacterial Vaginosis PCR POSITIVE (Negative); Candida Group PCR NOT DETECTED (Not Detect); Candida glab krusei PCR NOT DETECTED (Not Detect); Trichomonas vaginalis PCR NOT DETECTED (Not Detect)
[2025-06-06 16:04] LABS: CT PCR NOT DETECTED (Not Detect.); NG PCR NOT DETECTED (Not Detect.)
== END 2025-06-06 08:04 | disposition home or self-care (01) ==
LOC: HO.LNP 08:03
PROVIDERS: Visit Provider Advanced Practice Midwife
DX: Z01.411 Encounter for gynecological examination (general) (routine) with abnormal findings (principal); N63.0 Unspecified lump in unspecified breast; Z11.3 Encounter for screening for infections with a predominantly sexual mode of transmission
CPT/HCPCS: 81515; 87491; 87591; 99212; 99395

== ENCOUNTER 2025-06-06 08:03 | Outpatient (AMB) | payer OTHER, SELFPAY ==
--- NOTE | 2025-06-06 08:24 | MHC.OFFVIS ---
Vital Signs 06/06/25 08:31 Height 5 ft 6 in Weight 153 lb BMI 24.7 BP 104/68 Intake Visit Reasons: New patient Annual Intake Note: Per patient, paragard placed after she gave 2 years ago. Pap smear was also done at the time, states normal hx. Flatwork Supervisor: Flatwork Supervisor Present (BISHOP Gilman) Accompanied by: Self / Same As Patient Allergies metronidazole Allergy (Mild, Verified 07/29/24 14:31) Itching Is last menstrual period known: Yes Last menstrual period: 05/13/25 Post menopausal: No Patient : No HPI Comments Details: Patient is a premenopausal woman presenting for new patient annual examination. Chenille Machine Operator concerns: None. Regular monthly menses with Kyleena IUD inserted in 2022. Currently is sexually active. She denies vaginal itching or irritation. STI screening offered; she accepts, declines blood work. She tries to eat healthy and stays active with exercise. Denies family history of breast, ovarian or colon cancer. She denies any history of any previous breast biopsy, breast injury, nipple discharge or other concerns. Breast ultrasounds completed in 2020 for bilateral lumpy breast. Last pap smear 2 yrs. ago, negative. [facility] Medical History (Updated 06/06/25 @ 09:05 by Julia Glass CNM) IUD (intrauterine device) in place Chest pain Surgical History No pertinent past surgical history Family History Father No problems noted. Mother No problems noted. 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, [employer] nursing grad 2026 Gender identity: Female Cognitive needs: No Hearing needs: No Vision needs: Yes Female Reproductive History Menstrual Age of Menarche: 15 Duration of menses: 3-5 days Date of last menstrual period: 05/13/25 control method: copper IUCD (Paragard) Total pregnancies: 1 Full term: 1 History of abnormal pap smear: No Review of Systems Const All systems reviewed & are unremarkable except as noted in HPI and below Reports as per HPI Eyes Reports no additional complaints ENT Reports no additional complaints Card Reports no additional complaints Resp Reports no additional complaints GI Reports as per HPI and Reports no additional complaints Reports as per HPI Musc Reports no additional complaints Skin/Breast Reports as per HPI Neuro Reports no additional complaints Psych Reports no additional complaints Endo Reports no additional complaints Marcelino/Lymph Reports no additional complaints Aller/Immun Reports no additional complaints Physical Exam Vital Signs: Last Vital Signs BP 104/68 06/06/25 08:31 BMI result Body Mass Index 24.7 Const General: cooperative, healthy appearing, no acute distress, well developed and alert Orientation/consciousness: patient oriented x3 HEENT Head: Yes normal to inspection Eyes General: appearance normal, both eyes and all related structures Neck Neck: Yes normal visual inspection Thyroid: Thyroid normal Chest Chest palpation & inspection: normal inspection of the chest and other (no puckering, dimpling, peau de orange, retraction, discharge, masses) Breast/axilla inspection: normal inspection of the breasts Breast/axilla palpation: abnormal palpation of the breast left mass (2 to 3 o'clock position) Resp Effort & Inspection: normal respiratory effort GI Inspection: Yes normal to inspection Palpation (GI): Soft to palpation Rectal Exam - Female: deferred General: Yes bladder normal to palpation External Female Exam: normal external appearance and normal appearance of the urethra Speculum Exam - Vagina: normal appearance of the vagina, normal palpation and normal vaginal discharge Speculum Exam - Cervix: normal appearance of the cervix, normal palpation and Other cervical findings present (IUD strings present at the os) Bimanual exam- vagina & uterus: normal bimanual exam, normal palpation, uterine size normal, bladder normal to palpation, normal palpation and non-tender Bimanual Exam- Adnexa, other: no masses Skin General skin exam: no rashes or lesions noted Rashes: no rashes Neuro General: patient oriented x3 Cognition (Neuro): normal cognition Extrem General: Yes normal to inspection Psych Attitude: cooperative Thought process: Normal thought process present Assessment & Plan Assessment & Plan (1) Breast mass in female: Code(s): N63.0 - Unspecified lump in unspecified breast Category: Medical Plan: Discussed: Workup for breast evaluation to include diagnostic bilateral mammogram, and left breast limited ultrasound. Follow up in person for ultrasound results call sooner if there is any concerns. Surgical consult if indicated. The patient expressed understanding and agreement with the plan of care. All of her questions and concerns were addressed to the best of my ability. Total time I personally spent on visit and management today: ?15 minutes. Time spent included review of pertinent office notes in the electronic health record; review of laboratory and imaging results; review of personal family medical history; performing physical exam; discussing diagnosis and plan of care with the patient; documenting the encounter in the EMR. (2) Well woman exam with routine gynecological exam: Code(s): Z01.419 - Encounter for gynecological examination (general) (routine) without abnormal findings Category: Medical Plan Discussed: Current recommendations for pap smears per ASCCP guidelines. Breast awareness and periodic breast exams. Maintain a healthy lifestyle including a well balanced diet and routine exercise. Use condoms for STI and prevention. Patient verbalizes understanding and agrees to the plan of care. She was given opportunity to ask questions and all questions were answered to the best of my ability. RTO in one year for annual freezer assistant examination. This note is constructed using voice recognition software. While every effort has been made to ensure accuracy, multi operation machine operator errors may have been included. Orders: Orders MM tomosynthesis diagnostic BI Today N63.0 - Unspecified lump in unspecified breast, Z12.31 - Encounter for screening mammogram for malignant neoplasm of breast CT NG by PCR Vag/Cerv Today Z11.3 - Encounter for screening for infections with a predominantly sexual mode of transmission breast LT limited Today N63.0 - Unspecified lump in unspecified breast Bacterial Vaginosis Panel Today Z11.3 - Encounter for screening for infections with a predominantly sexual mode of transmission Coding Level of Care Code Est Pt Level 2 (66807) Est Pt Prev Care 18-39y(53539) Diagnoses Breast mass in female N63.0 Well woman exam with routine gynecological exam Z01.419
[2025-06-06 08:31] VITALS: BP 104/68; BMI 24.7
== END 2025-06-06 09:17 | disposition home or self-care (01) ==
LOC: HO.HWS 08:04
PROVIDERS: Visit Provider Advanced Practice Midwife
DX: Z01.419 Encounter for gynecological examination (general) (routine) without abnormal findings (principal); N63.0 Unspecified lump in unspecified breast
CPT/HCPCS: 99212; 99395; 99459

== ENCOUNTER 2025-06-14 07:52 | Outpatient (REF) | payer OTHER, SELFPAY ==
--- NOTE | ~2025-06-14 | MM_ITS ---
EXAMINATION: MM DIAGNOSTIC DIGITAL BREAST TOMOSYNTHESIS, BILATERAL Limited left breast ultrasound. CLINICAL INFORMATION: Left breast palpable lump upper outer quadrant. COMPARISON: Mammography: Comparison is made with relevant prior exams. TECHNIQUE: Digital breast mammography with tomosynthesis is performed in both the craniocaudal and mediolateral oblique views along with computer-aided detection (CAD). FINDINGS: The breasts are extremely dense, which lowers the sensitivity of mammography (ACR BI-RADS breast composition Category d). BB marker in the upper outer left breast without underlying abnormal finding at site of patient's palpable lump. There are no significant masses, abnormal calcifications, or other abnormalities. Targeted color Doppler ultrasound scanning in the left breast area of patient's palpable lump upper outer quadrant demonstrates normal fibronodular breast tissue. There is no sonographic abnormal finding to account for the patient's palpable lump. Results are provided to the patient at time of visit by the technologist. MM/MM tomosynthesis diagnostic BI IMPRESSION: Right: Negative. Left: No mammographic or sonographic abnormal finding to account for the patient's left breast palpable lump. Recommend clinical evaluation and follow-up. ASSESSMENT: BI-RADS BI-RADS 1 - Negative RECOMMENDATION: 1 year F/U This patient's information was entered into a reminder system with a target due date for their next mammogram. Electronically signed by: Idalmis Reed DO 06/14/2025 08:54 AM EDT
== END 2025-06-14 07:53 | disposition home or self-care (01) ==
LOC: HO.MAMMO 07:52
DX: Z12.31 Encounter for screening mammogram for malignant neoplasm of breast (principal); N63.21 Unspecified lump in the left breast, upper outer quadrant
CPT/HCPCS: 76642; 77062; 77066

== ENCOUNTER → 2025-06-14 08:30 | Outpatient (BNV) | payer OTHER, SELFPAY | PROVIDERS: Visit Provider Internal Medicine | DX: N63.21 Unspecified lump in the left breast, upper outer quadrant (principal) | CPT/HCPCS: 76642; 77062; 77066 ==

== ENCOUNTER 2025-06-21 08:42 | Outpatient (AMB) | payer OTHER, SELFPAY ==
--- NOTE | 2025-06-21 08:43 | MHC.OFFVIS ---
Intake Visit Reasons: Lab results/Breast diagnostic follow up Motorcycle Deliverer: Motorcycle Deliverer Present Allergies metronidazole Allergy (Mild, Verified 07/29/24 14:31) Itching Is last menstrual period known: Yes HPI Comments Details: Tele Health Visit Total time I personally spent on visit and management today: 13 minutes. Time spent included review of pertinent office notes in the electronic health record; review of laboratory and imaging results; review of personal family medical history; discussing diagnosis and plan of care with the patient; documenting the encounter in the EMR. Patient presents to discuss: Results of breast imaging. History of left breast mass 2 to 3 o'clock position on previous exam. Prior ultrasound in 2020. Admits to cyclic breast pain at times. [facility] Medical History (Updated 06/21/25 @ 09:00 by Julia Glass CNM) Extremely dense tissue of both breasts on mammography Dense breast tissue on mammogram IUD (intrauterine device) in place Chest pain Surgical History No pertinent past surgical history Family History Father No problems noted. Mother No problems noted. 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, [employer] nursing grad 2026 Gender identity: Female Cognitive needs: No Hearing needs: No Vision needs: Yes Female Reproductive History Menstrual Age of Menarche: 15 Review of Systems Const All systems reviewed & are unremarkable except as noted in HPI and below Endo Reports no additional complaints Physical Exam Const General: cooperative, healthy appearing and no acute distress Psych Appearance: well kempt Attitude: cooperative Thought process: Normal thought process present Telehealth Telehealth Telehealth Platform: [employer] Location of provider rendering services: practice address Location of patient: address on file Patient Identification confirmed using: Name, : Yes Telehealth method: video Patient verbally consented to treatment: Yes Patient verbally consented to billing insurance company: Yes Patient informed of any privacy concerns related to visit: Yes Results Reviewed Results Reviewed: [facility] [address] [place] [address] Mammography Report Signed Patient: Carmelina Jolly MR#: [id number] : 1990 Acct:[id number] Age/Sex: 34 / F ADM Date: 06/14/25 Loc: HO.MAMMO Attending Dr: Meenu Keyes PA-C Ordering Physician: Julia Glass CNM Results: 1Negative Date of Service: 06/14/25 Follow Up: 1 Year From Original Mammogram Procedure(s): MM tomosynthesis diagnostic BI Accession Number(s): [id number] cc: Meenu Keyes PA-C; Julia Glass CNM~ EXAMINATION: MM DIAGNOSTIC DIGITAL BREAST TOMOSYNTHESIS, BILATERAL Limited left breast ultrasound. CLINICAL INFORMATION: Left breast palpable lump upper outer quadrant. COMPARISON: Mammography: Comparison is made with relevant prior exams. TECHNIQUE: Digital breast mammography with tomosynthesis is performed in both the craniocaudal and mediolateral oblique views along with computer-aided detection (CAD). FINDINGS: The breasts are extremely dense, which lowers the sensitivity of mammography (ACR BI-RADS breast composition Category d). BB marker in the upper outer left breast without underlying abnormal finding at site of patient's palpable lump. There are no significant masses, abnormal calcifications, or other abnormalities. Targeted color Doppler ultrasound scanning in the left breast area of patient's palpable lump upper outer quadrant demonstrates normal fibronodular breast tissue. There is no sonographic abnormal finding to account for the patient's palpable lump. Results are provided to the patient at time of visit by the technologist. MM/MM tomosynthesis diagnostic BI IMPRESSION: Right: Negative. Left: No mammographic or sonographic abnormal finding to account for the patient's left breast palpable lump. Recommend clinical evaluation and follow-up. ASSESSMENT: BI-RADS BI-RADS 1 - Negative RECOMMENDATION: 1 year F/U This patient's information was entered into a reminder system with a target due date for their next mammogram. Electronically signed by: Idalmis Reed DO 06/14/2025 08:54 AM EDT Dictated By: Idalmis Reed DO Signed By: <Electronically signed by Idalmis Reed DO in OV> 06/14/25 0854 DD/ 0755 TD/TT: 06/14/25 0811 Railroad Detective: Assessment & Plan Assessment & Plan (1) Mastalgia: Code(s): N64.4 - Mastodynia Plan: See notes below. (2) Breast mass in female: Code(s): N63.0 - Unspecified lump in unspecified breast Category: Medical Plan Discussed breast imaging studies: Right: Negative. Left: No mammographic or sonographic abnormal finding to account for the patient's left breast palpable lump. Recommend clinical evaluation and follow-up. ASSESSMENT: BI-RADS BI-RADS 1 - Negative RECOMMENDATION: 1 year F/U Cyclic breast pain common with menstrual cycling changes, advised to notify the office for further evaluation if pain is persistent and increased including unilateral region or any other breast concerns. Discuss referral to breast surgery for consultation due to extreme breast density and findings of breast thickening with negative imaging results, risk of missing early findings due to density with mammogram and ultrasound utilization. The patient expressed understanding and agreement with the plan of care. All of her questions and concerns were addressed to the best of my ability. This note is constructed using voice recognition software. While every effort has been made to ensure accuracy, general road supervisor errors may have been included. Orders: Referrals Breast Surgery Referral N63.0 - Unspecified lump in unspecified breast, R92.343 - Mammographic extreme density, bilateral breasts Coding Level of Care Code Tele Est Pt Level 3 (08676) Diagnoses Mastalgia N64.4 Breast mass in female N63.0
== END 2025-06-21 09:47 | disposition home or self-care (01) ==
LOC: HO.HWS 08:42
PROVIDERS: Visit Provider Advanced Practice Midwife
DX: N64.4 Mastodynia (principal); N63.0 Unspecified lump in unspecified breast
CPT/HCPCS: 99213

== ENCOUNTER 2025-07-31 13:36 | Outpatient (AMB) | payer OTHER, SELFPAY ==
[2025-07-31 13:07] VITALS: BP 116/72; PULSE 91; TEMP 36.3; O2SAT 99; BMI 22.9
--- NOTE | 2025-07-31 13:07 | A.OFFPC_ITS ---
Vital Signs 07/31/25 13:07 Height 5 ft 6 in Weight 142 lb 2 oz BMI 22.9 BP 116/72 Blood Pressure Location Lt brachial Position Sitting Pulse 91 Pulse Source Pulse Oximeter Temp 97.3 F Temp Source Temporal Artery Scan Pulse Oximetry (%) 99 Oxygen Delivery Method Room Air Intake Visit Reasons: Annual Exam Molder Hand Required: No Accompanied by: Self / Same As Patient Allergies metronidazole Allergy (Mild, Verified 07/31/25 14:20) Itching Medication List - Last Reconciled 07/31/25 by Meenu Keyes PA-C albuterol sulfate 90 mcg/actuation 1 inh inhalation Q4H PRN 30 days cholecalciferol (vitamin D3) 25 mcg PO DAILY multivitamin 1 tab PO DAILY PRN Tobacco use date assessed: 07/31/25 Dental Screening Dental Screen Date: 07/31/25 Did you have a dental visit in the last 12 months?: Yes Did you have a dental problem in the last 6 months where you did not have access to dental care?: No HPI Annual Exam HPI Details 35 year old female with past medical his tory of asthma, anxiety, alopecia last seen 07/2024 coming in for physical exam. In review of the notes, patient was seen by lime hide inspector 06/2025 for breast mass workup was negative with mammogram and ultrasound and advised to follow up for yearly testing. Patient tells us today she has been feeling generally well and does not have any acute concerns. She has noted 10 lb weight loss since last visit. Mammogram: 06/2025 follow up in 1 year Pap smear: Up-to-date with gynecology Vaccinations: Up-to-date [facility] Medical History Extremely dense tissue of both breasts on mammography Dense breast tissue on mammogram IUD (intrauterine device) in place Chest pain Surgical History No pertinent past surgical history Family History Father No problems noted. Mother No problems noted. 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 1. Little interest or pleasure in doing things: not at all 2. Feeling down, depressed, or hopeless: not at all 3. Trouble falling or staying asleep, or sleeping too much: not at all 4. Feeling tired or having little energy: not at all 5. Poor appetite or overeating: not at all 6. Feeling bad about yourself - or that you are a failure or have let yourself or your family down: not at all 7. Trouble concentrating on things, such as reading the newspaper or watching television: not at all 8. Moving or speaking so slowly that other people could have noticed. Or the opposite - being so fidgety or restless that you have been moving around a lot more than usual: not at all 9. Thoughts that you would be better off or of hurting yourself in some way: not at all Total score: 0 Depression Screening Interpretation: Negative Depression Screening Done: Yes Source: Developed by Drs. Rafita Welsh, Marii Rodgers, Brennen Ivan and colleagues, with an educational lydia from [employer]. Thrive Questionnaire Date Thrive assessed: 07/31/25 I am a: Patient What is your living situation today?: I have a steady place to live Within the past 12 months, did the food you bought not last and you didn't have the money to get more?: Never true Within the past 12 months, did you worry whether your food would run out before you got money to buy more?: Never true Do you have trouble paying for medicines?: No Do you have trouble getting transportation to medical appointments?: No Do you have trouble paying your heating and electricity bill?: No Do you have trouble taking care of your child, family member or friend?: No Do you have trouble with day-to-day activities such as bathing, preparing meals, shopping, managing finances, etc.?: No Are you currently unemployed and looking for a job?: No Are you interested in more education?: Yes Please select the resources that you would like help with: Childcare Currently or been in a relationship where the following occur: No concerns reported THRIVE Score: 0 AUDIT C Alcohol Use Questionnaire (AUDIT-C) 1. How often do you have a drink containing alcohol?: Monthly or less 2. How many drinks containing alcohol do you have on a typical day when you are drinking?: 1 or 2 3. How often do you have six or more drinks on one occasion?: Less than monthly Total Score: 2 DANIEL-7 AMB Questionnaire DANIEL-7 Date DANIEL - 7 assessed: 07/31/25 Feeling nervous, anxious, or on edge: 0 = Not at all Not being able to stop or control worryin = Not at all Worrying too much about different things: 0 = Not at all Trouble relaxin = Not at all Being so restless that it is hard to sit still: 0 = Not at all Becoming easily annoyed or irritable: 0 = Not at all Feeling afraid as if something awful might happen: 0 = Not at all Total DANIEL-7 score (0-4 normal; 5-9 mild; 10-14 moderate; 15-21 severe): 0 Source: Developed by Drs. Rafita Welsh, Marii Rodgers, rBennen Ivan and colleagues, with an educational lydia from [employer]. Review of Systems Const Denies body aches, Denies fatigue, Denies fever(s), Denies frequent falls, Denies headache(s) and Denies weakness Eyes Reports no additional complaints and Denies change in vision ENT Denies dysphagia, Denies dizziness, Denies facial pain, Denies headache(s), Denies nasal congestion and Denies odynophagia Card Denies chest pain, Denies syncope, Denies irregular heart rhythm, Denies leg edema, Denies lightheadedness and Denies dyspnea Resp Denies cough and Denies dyspnea GI Denies constipation, Denies dysphagia, Denies dyspepsia, Denies diarrhea, Denies nausea, Denies odynophagia and Denies vomiting Denies urinary frequency, Denies dysuria, Denies urinary hesitancy and Denies urinary urgency Musc Denies back pain and Denies myalgias Skin/Breast Reports system reviewed and no additional complaints, except as documented Neuro Denies dizziness, Denies syncope, Denies frequent falls, Denies headache(s) and Denies weakness Psych Reports no additional complaints Endo Denies fatigue Physical exam (Primary Care) Vital Signs: Last Vital Signs Temp 97.3 F 07/31/25 13:07 Pulse 91 07/31/25 13:07 BP 116/72 07/31/25 13:07 Pulse Ox 99 07/31/25 13:07 Oxygen Delivery Method Room Air 07/31/25 13:07 BMI result Body Mass Index 22.9 Tobacco/Smoking Status: Tobacco use Status Tobacco use date assessed 07/31/25 07/31/25 13:08 Patient Tobacco Use Status Never used Tobacco 07/31/25 13:08 Tobacco use type Cigarette 07/31/25 13:08 e-Cigarette/Vaping Use Never Used 07/31/25 13:08 PHQ-9: PHQ-9 Score PHQ-9: Total score 0 07/31/25 14:55 Depression Screening Interpretation: Negative Thrive Assessment: Date of Thrive Assessment Date Thrive assessed 07/31/25 07/31/25 13:08 Currently or been in a relationship where the following occur: No concerns reported Const General: cooperative, healthy appearing, comfortable and no acute distress Orientation/consciousness: patient oriented x3 HENMT Head: Yes normocephalic Ears: hearing grossly normal bilaterally, external ears normal, TM's normal bilaterally and EAC's normal General nose exam: Normal external nose present Face and sinus: Yes normal facial exam and Yes sinuses nontender Mouth: Normal oral and palatal mucosa present and tongue normal Throat: Yes posterior oropharynx normal Eyes General: appearance normal, both eyes and all related structures Conjunctivae: conjunctivae normal Pupils: Equal, round and reactive pupils present EOM: EOMs intact bilaterally and No Nystagmus present Neck Neck: Yes normal visual inspection, Yes full ROM and Yes no lymphadenopathy Chest Chest palpation & inspection: normal inspection of the chest Resp Effort & Inspection: normal respiratory effort Auscultation: clear to auscultation bilaterally, no crackles, no rales, no rhonchi, no wheezes and breath sounds present Cardio Rate: regular rate Rhythm: regular rhythm Peripheral pulses: radial pulses present and dorsalis pedis present GI Inspection: Yes normal to inspection and No Abdominal wall edema Palpation (GI): Soft to palpation, not firm and nontender Auscultation: normal bowel sounds Rectal Exam - Female: deferred General: Yes no CVA tenderness Back/Spine/Pelvis Back: no CVA tenderness Skin General skin exam: no rashes or lesions noted Neuro General: patient oriented x3 Cranial nerves: Yes Equal, round and reactive pupils present, Yes Midline tongue present, Yes Ability to bilaterally elevate shoulders present and No Nystagmus present Gait exam (Neuro): Normal gait present Extrem General: Yes normal to inspection, Yes full ROM, No no pedal edema and No edema Psych Speech and movement: Normal speech and movement present Affect: normal affect Insight: Good insight present (Psych) Judgement: Good judgement present (Psych) Coding Level of Care Code Est Pt Prev Care 18-39y(28027) Diagnoses Physical exam Z00.00 Anxiety F41.9 Asthma J45.909 Constipation K59.00 Assessment & Plan Assessment & Plan (1) Physical exam: Code(s): Z00.00 - Encounter for general adult medical examination without abnormal findings Category: Medical Plan: Patient is up-to-date on all recommended routine screenings and vaccinations for her age. Ordered for updated blood work. Plan to follow up yearly or sooner as needed. Healthy diet and regular exercise is encouraged. (2) Anxiety: Code(s): F41.9 - Anxiety disorder, unspecified Category: Medical Plan: Patient feels anxiety is well managed without medication at this time (3) Asthma: Code(s): J45.909 - Unspecified asthma, uncomplicated Category: Medical Plan: Asthma currently controlled on present medications. Continue on albuterol as needed.? Avoid triggers such as allergies. (4) Constipation: Code(s): K59.00 - Constipation, unspecified Category: Medical Plan: Reminded patient about the 3 rules of constipation; increase fluid intake, increase fiber intake, and exercise as tolerated. May use MiraLax as needed Plan This note was constructed using voice recognition software. While every effort has been made to ensure accuracy and machine clerical verifier, still areas may have been included sometimes these areas may affect the content or meeting of the given symptoms. Total time spent caring for the patient today was 30 minutes. This includes time spent before the visit reviewing the chart, time spent during the visit, and time spent after the visit and documentation. Patient was informed and verbally consented to the use of an ambient scribe for clinic note documentation during this visit. Orders: Orders TSH reflex Free T4 Today Z13.29 - Encounter for screening for other suspected endocrine disorder Vitamin D 25-OH Total Today D64.9 - Anemia, unspecified, Z13.21 - Encounter for screening for nutritional disorder Complete Blood Count Auto Diff Today D64.9 - Anemia, unspecified, Z00.00 - Encounter for general adult medical examination without abnormal findings Comprehensive Met. Panel Today D64.9 - Anemia, unspecified, Z00.00 - Encounter for general adult medical examination without abnormal findings Vitamin B12 and Folate Today D64.9 - Anemia, unspecified, Z13.21 - Encounter for screening for nutritional disorder Lipid Panel Today Z13.220 - Encounter for screening for lipoid disorders
== END 2025-07-31 14:35 | disposition home or self-care (01) ==
LOC: HO.HMCH 13:37
DX: Z00.00 Encounter for general adult medical examination without abnormal findings (principal); F41.9 Anxiety disorder, unspecified; J45.909 Unspecified asthma, uncomplicated; K59.00 Constipation, unspecified

== ENCOUNTER → 2025-07-31 13:36 | Outpatient (BNVA) | payer OTHER, SELFPAY | DX: Z00.00 Encounter for general adult medical examination without abnormal findings (principal); F41.9 Anxiety disorder, unspecified; J45.909 Unspecified asthma, uncomplicated; K59.00 Constipation, unspecified; D64.9 Anemia, unspecified | CPT/HCPCS: 99395 ==

== ENCOUNTER 2025-08-01 09:11 | Outpatient (AMB) | payer OTHER, SELFPAY ==
--- NOTE | 2025-08-01 09:17 | A.OFFVIS_ITS ---
Vital Signs 3 08/01/25 09:22 Height 5 ft 6 in Weight 149 lb BMI 24.0 BP 111/67 Blood Pressure Location Lt brachial Position Sitting Pulse 77 Intake Visit Reasons: Mammographic extreme density, bilateral breasts Intake Note: Patient is seen in office for evaluation of extreme density of bilateral breast. Pt c/o: a lump was felt on the left breast 2 months ago, per pt she had felt it 3 yrs ago and was told to observed, thinks might have increase since, denies redness, discharge, no fm hx of breast cancer, no prior surgeries or infections mm/us:06/14/25 Disc Inspector Required: No Welding Machine Operator Electron Beam: Welding Machine Operator Electron Beam Present Accompanied by: Self / Same As Patient Allergies metronidazole Allergy (Mild, Verified 08/01/25 09:21) Itching Medication List - Last Reconciled 08/01/25 by Raman Mays MD albuterol sulfate 90 mcg/actuation 1 inh inhalation Q4H PRN 30 days cholecalciferol (vitamin D3) 25 mcg PO DAILY multivitamin 1 tab PO DAILY PRN HPI Comments Details: 35-year-old female patient presenting for evaluation of a left breast lump 1st noted several years ago. This was confirmed on physical examination last year and felt to have increased in size over the past year. She subsequently underwent mammogram and ultrasound performed on 06/14/2025. This revealed extremely dense breast tissue (category D) but no suspicious findings in either breast on both mammogram and ultrasound (BI-RADS 1). She denies a prior history of breast problems or breast surgery. Her menarche was at 15. She is . First child was born when she was 32 years old. She currently has an IUD in place. She denies a family history of breast or ovarian cancer and there was no history of genetic testing her family. Calculated Tyrer-Cuzick remaining lifetime risk of breast cancer 13%. [facility] Medical History Extremely dense tissue of both breasts on mammography Dense breast tissue on mammogram IUD (intrauterine device) in place Chest pain Surgical History No pertinent past surgical history Family History Father No problems noted. Mother No problems noted. Maternal Grandfather Cancer Diabetes Social History Household Members: Spouse Housing: House Are you a primary child caregiver to a significant other at home: No Do you presently have visiting nurse or other home services: No Alcohol intake: current Alcohol intake frequency: holidays/special occasions only Patient Tobacco Use Status: Never used Tobacco Tobacco use type: Cigarette e-Cigarette/Vaping Use: Never Used Second Hand Smoke Exposure: No service: No Current occupational status: employed Current occupation: [employer], [employer] nursing grad 2026 Gender identity: Female Cognitive needs: No Hearing needs: No Vision needs: Yes Female Reproductive History Menstrual Age of Menarche: 15 Date of last menstrual period: 08/01/25 Total pregnancies: 2 Number of Living Children: 1 Review of Systems Const All systems reviewed & are unremarkable except as noted in HPI and below Physical Exam Vital Signs: Last Vital Signs Pulse 77 08/01/25 09:22 BP 111/67 08/01/25 09:22 BMI result Body Mass Index 24.0 Const General: cooperative and no acute distress Nutritional Appearance: well nourished Orientation/consciousness: patient oriented x3 Limitations: no limitations HEENT Head: Yes normocephalic and Yes atraumatic Ears: hearing grossly normal bilaterally Chest Other: Bilateral dense breast tissue Left breast: No skin change, no nipple retraction, no nipple discharge, palpable density noted in the 2 o'clock position which feels fairly discrete measuring approximately 1.5 cm in diameter, mobile within the breast tissue, no enlarged lymph nodes. Right breast: No skin change, no nipple retraction, no nipple discharge, no palpable mass, no enlarged lymph nodes Chest/axillae images: 2 1. Site of palpable mass in the upper outer quadrant. Mild tenderness to palpation. Resp Effort & Inspection: normal respiratory effort, no audible wheezes, no cough and no respiratory distress Cardio Jugular venous distension: no JVD GI Inspection: Yes normal to inspection Skin Other: Warm, dry, no rash Neuro General: patient oriented x3 Extrem General: Yes no clubbing, cyanosis or edema Assessment & Plan Assessment & Plan (1) Left breast lump: Code(s): N63.20 - Unspecified lump in the left breast, unspecified quadrant Category: Medical Qualifiers: Breast mass location: upper outer quadrant Qualified Code(s): N63.21 - Unspecified lump in the left breast, upper outer quadrant (2) Extremely dense tissue of left breast on mammography: Code(s): R92.342 - Mammographic extreme density, left breast Category: Medical Plan 35-year-old female patient presenting for evaluation of a palpable mass in the left breast at the upper outer quadrant. This has been present for several years and appears to be increasing in size history. Recent mammogram and ultrasound revealed no suspicious findings in this location. Examination does confirm palpable mass which is fairly discrete and located in the upper outer quadrant. The patient has no family history of breast problems in her lifetime risk of breast cancer was calculated at 13%. Mammograms do show extremely dense breast tissue (category D). Options discussed include continued observation, breast MRI, or surgical excision. After discussion of the various options she wishes to proceed with a breast MRI which is reasonable given her extremely dense breast tissue on mammogram. She will return following the MRI to review the results and discuss options. Orders: Orders 2 MR breast BI wo/w con Today N63.20 - Unspecified lump in the left breast, unspecified quadrant, R92.342 - Mammographic extreme density, left breast Coding Level of Care Code New Pt Level 4 (13244) Diagnoses Mass of upper outer quadrant of left breast N63.21 Breast mass location: upper outer quadrant Extremely dense tissue of left breast on mammography R92.342
[2025-08-01 09:22] VITALS: BP 111/67; PULSE 77; BMI 24.0
== END 2025-08-01 09:31 | disposition home or self-care (01) ==
LOC: HO.HGS 09:12
PROVIDERS: Visit Provider Surgery
DX: N63.21 Unspecified lump in the left breast, upper outer quadrant (principal); R92.342 Mammographic extreme density, left breast
CPT/HCPCS: 99204

== ENCOUNTER → 2025-08-01 09:11 | Outpatient (BNVA) | payer OTHER, SELFPAY | PROVIDERS: Visit Provider Surgery | DX: R92.342 Mammographic extreme density, left breast (principal); N63.21 Unspecified lump in the left breast, upper outer quadrant | CPT/HCPCS: 99202 ==

== ENCOUNTER 2025-08-15 10:38 | Outpatient (REF) | payer OTHER, SELFPAY ==
--- NOTE | ~2025-08-15 | MR_ITS ---
EXAMINATION: MR BREAST WITHOUT AND WITH CONTRAST, BILATERAL CLINICAL INFORMATION: Left breast palpable lump upper outer quadrant with recent negative mammogram and ultrasound. COMPARISON: Comparison is made with relevant prior imaging. TECHNIQUE: MR imaging of the breast was performed using T1, T2 and fat saturated techniques. Dynamic multiphase imaging was also performed after the administration of intravenous gadolinium contrast agent. Computer generated 3D reconstruction and enhancement kinetic analysis was ulitized by the radiologist in the interpretation of this examination. FINDINGS: Breast composition: Extremely dense fibroglandular breast tissue. Background parenchymal enhancement: Moderate LEFT BREAST: No suspicious enhancing masses or areas of non mass enhancement. No axillary or internal mammary adenopathy. RIGHT BREAST: Within the central inner right breast series 1041 image 56/126 there is an oval circumscribed enhancing mass measuring 12 x 6 mm AP by transverse. Otherwise no other suspicious enhancing masses or areas of nonmass enhancement. No axillary or internal mammary adenopathy. Limited views of the chest and abdomen are unremarkable. MR/MR breast BI wo/w con IMPRESSION: Left: Negative. Right: Circumscribed oval mass measuring 12 mm in the central inner right breast. Recommend 6 month MRI directed ultrasound of the right breast at this time. If no ultrasound correlate is seen six-month follow-up MRI is recommended for further evaluation of stability. ASSESSMENT: LEFT BREAST: BI-RADS 1-Negative RIGHT BREAST: BI-RADS 3-Probably Benign RECOMMENDATIONS: Recommend right breast ultrasound at this time. If no ultrasound correlate is seen for the MRI oval enhancing mass then six-month follow-up MRI is recommended for further evaluation of stability. Electronically signed by: Idalmis Reed DO 08/18/2025 03:46 PM EDT
== END 2025-08-15 10:39 | disposition home or self-care (01) ==
LOC: HO.MRI 10:38
PROVIDERS: Visit Provider Surgery
DX: R92.342 Mammographic extreme density, left breast (principal); N63.21 Unspecified lump in the left breast, upper outer quadrant
CPT/HCPCS: 77049; A9585

== ENCOUNTER → 2025-08-15 10:46 | Outpatient (BNV) | payer OTHER, SELFPAY | PROVIDERS: Visit Provider Internal Medicine | DX: N63.12 Unspecified lump in the right breast, upper inner quadrant (principal) | CPT/HCPCS: 77049 ==

== ENCOUNTER 2025-08-29 10:11 | Outpatient (AMB) | payer OTHER, SELFPAY ==
--- NOTE | 2025-08-29 10:13 | A.OFFVIS_ITS ---
Vital Signs 08/29/25 10:24 Height 5 ft 6 in Weight 152 lb 1.903 oz BMI 24.5 BP 108/64 Blood Pressure Location Lt brachial Position Sitting Pulse 88 Intake Visit Reasons: s/p MRI 08/15/25 Intake Note: Patient is seen in office for MRI results. Pt c/o: no changes here for results. Interventional Radiologist Required: No Accompanied by: Self / Same As Patient Allergies metronidazole Allergy (Mild, Verified 08/29/25 10:24) Itching Medication List - Last Reconciled 08/29/25 by Raman Mays MD albuterol sulfate 90 mcg/actuation 1 inh inhalation Q4H PRN 30 days cholecalciferol (vitamin D3) 25 mcg PO DAILY multivitamin 1 tab PO DAILY PRN HPI Comments Details: 35-year-old female patient presenting for evaluation of a breast lump noted in the left side several years and confirmed on physical examination. She was previously evaluated on 08/01/2025 at which time the lump was confirmed in the left breast upper outer quadrant. Mammogram and ultrasound performed on 06/14/2025 revealed extremely dense breast tissue (category D) but no suspicious findings in either breast on both mammogram and ultrasound (BI-RADS 1). Her menarche was the age of 15. She is in her 1st child was born when she was 32 years old. Family history negative for breast or ovarian cancer. The decision was made to obtain a breast MRI at her last visit. She returns today to review the results. The MRI performed on 08/15/2025 revealed a negative left breast however on the right side a circumscribed oval mass measuring 12 mm in the central inner right breast was identified. A focused right breast ultrasound was recommended and if no correlate was identified then repeat MRI in 6 months is recommended to evaluate for stability (BI-RADS 1 left breast, BI- RADS 3 right breast). [facility] Medical History Extremely dense tissue of both breasts on mammography Dense breast tissue on mammogram IUD (intrauterine device) in place Chest pain Surgical History No pertinent past surgical history Family History Father No problems noted. Mother No problems noted. Maternal Grandfather Cancer Diabetes Social History Household Members: Spouse Housing: House Are you a primary neonatal intensive care unit nurse to a significant other at home: No Do you presently have visiting nurse or other home services: No Alcohol intake: current Alcohol intake frequency: holidays/special occasions only Patient Tobacco Use Status: Never used Tobacco Tobacco use type: Cigarette e-Cigarette/Vaping Use: Never Used Second Hand Smoke Exposure: No service: No Current occupational status: employed Current occupation: [employer], [employer] nursing grad 2026 Gender identity: Female Cognitive needs: No Hearing needs: No Vision needs: Yes Female Reproductive History Menstrual Age of Menarche: 15 Review of Systems Const All systems reviewed & are unremarkable except as noted in HPI and below Physical Exam Exam Exam: Exam deferred Vital Signs: Last Vital Signs Pulse 88 08/29/25 10:24 BP 108/64 08/29/25 10:24 BMI result Body Mass Index 24.5 Assessment & Plan Assessment & Plan (1) Breast mass in female: Code(s): N63.0 - Unspecified lump in unspecified breast Category: Medical (2) Abnormal MRI, breast: Code(s): R92.8 - Other abnormal and inconclusive findings on diagnostic imaging of breast Category: Medical Plan I reviewed the results of the MRI today with the patient and made the recommendation of a right breast ultrasound to further evaluate the 12 mm central inner right breast lesion noted on MRI. I will call her with the results once available. If no correlate identified by ultrasound a six-month follow-up breast MRI will be requested. The patient expressed understanding and agrees with the plan. Orders: Orders US breast RT limited Today N63.0 - Unspecified lump in unspecified breast, R92.8 - Other abnormal and inconclusive findings on diagnostic imaging of breast Coding Level of Care Code Est Pt Level 3 (57110) Diagnoses Breast mass in female N63.0 Abnormal MRI, breast R92.8
[2025-08-29 10:24] VITALS: BP 108/64; PULSE 88; BMI 24.5
== END 2025-08-29 10:59 | disposition home or self-care (01) ==
LOC: HO.HGS 10:12
PROVIDERS: Visit Provider Surgery
DX: N63.0 Unspecified lump in unspecified breast (principal); R92.8 Other abnormal and inconclusive findings on diagnostic imaging of breast
CPT/HCPCS: 99213

== ENCOUNTER → 2025-08-29 10:11 | Outpatient (BNVA) | payer OTHER, SELFPAY | PROVIDERS: Visit Provider Surgery | DX: Z71.2 Person consulting for explanation of examination or test findings (principal); N63.21 Unspecified lump in the left breast, upper outer quadrant; R92.8 Other abnormal and inconclusive findings on diagnostic imaging of breast | CPT/HCPCS: 99212 ==

== ENCOUNTER 2025-09-08 08:06 | Outpatient (AMB) | payer OTHER, SELFPAY ==
--- NOTE | 2025-09-08 08:09 | MHC.PC.OV ---
Vital Signs 09/08/25 08:12 Height 5 ft 6 in Weight 153 lb BMI 24.7 BP 130/70 Blood Pressure Location Lt brachial Position Sitting Pulse 78 Pulse Source Pulse Oximeter Temp 97.3 F Temp Source Temporal Artery Scan Pulse Oximetry (%) 98 Oxygen Delivery Method Room Air Intake Visit Reasons: follow up Intake Note: Patient is here to follow up on Asthma, Back pain. Clean Out Driller Required: No Glass Deposition Tender: Not Required per policy Accompanied by: Self / Same As Patient Allergies metronidazole Allergy (Mild, Verified 09/08/25 08:14) Itching Medication List - Last Reconciled 09/08/25 by Meenu Keyes PA-C albuterol sulfate 90 mcg/actuation 1 inh inhalation Q4H PRN 30 days cholecalciferol (vitamin D3) 25 mcg PO DAILY multivitamin 1 tab PO DAILY PRN Tobacco use date assessed: 09/08/25 Dental Screening Dental Screen Date: 09/08/25 Did you have a dental visit in the last 12 months?: Yes Did you have a dental problem in the last 6 months where you did not have access to dental care?: No Was dental information given to patient?: Patient has dentist HPI follow up HPI Details 35-year-old female with past medical history of asthma, anxiety and alopecia last seen 07/2025 coming in for follow up. In review of the notes, patient was seen by General surgery 08/29/2025 s/p MRI for breast mass which identified a 12 mm central inner right breast lesion recommending repeat MRI in 6 months and targeted ultrasound of the breast. Presenting for evaluation of hemorrhoids and headaches. She has been experiencing bothersome hemorrhoids for the past month, which cause pain and bleeding with defecation. She reports feeling one internal and some external components, and notes that a topical cream has not been effective in shrinking them. Her symptoms are exacerbated by constipation, which she manages with Milk of Magnesia. For the past month, the patient has experienced headaches almost every other day, which she describes as a numb, tender, and heavy sensation across her forehead. The headaches are relieved by being in a dark environment and their onset coincides with starting classes last month, which increased her screen time on a tablet in addition to her computer use at work. [facility] Medical History Extremely dense tissue of both breasts on mammography Dense breast tissue on mammogram IUD (intrauterine device) in place Chest pain Surgical History No pertinent past surgical history Family History Father No problems noted. Mother No problems noted. Maternal Grandfather Cancer Diabetes Social History Household Members: Spouse Housing: House Are you a primary health careers instructor to a significant other at home: No Do you presently have visiting nurse or other home services: No Alcohol intake: current Alcohol intake frequency: holidays/special occasions only Patient Tobacco Use Status: Never used Tobacco Tobacco use type: Cigarette e-Cigarette/Vaping Use: Never Used Second Hand Smoke Exposure: No service: No Current occupational status: employed Current occupation: [employer], [employer] nursing grad 2026 Gender identity: Female Cognitive needs: No Hearing needs: No Vision needs: Yes (Glasses) Female Reproductive History Menstrual Age of Menarche: 15 Questionnaire Thrive Questionnaire Date Thrive assessed: 07/30/25 I am a: Patient What is your living situation today?: I have a steady place to live Within the past 12 months, did the food you bought not last and you didn't have the money to get more?: Never true Within the past 12 months, did you worry whether your food would run out before you got money to buy more?: Never true Do you have trouble paying for medicines?: No Do you have trouble getting transportation to medical appointments?: No Do you have trouble paying your heating and electricity bill?: No Do you have trouble taking care of your child, family member or friend?: No Do you have trouble with day-to-day activities such as bathing, preparing meals, shopping, managing finances, etc.?: No Are you currently unemployed and looking for a job?: No Are you interested in more education?: Yes Please select the resources that you would like help with: Childcare Currently or been in a relationship where the following occur: No concerns reported THRIVE Score: 0 DANIEL-7 AMB Questionnaire DANIEL-7 Date DANIEL - 7 assessed: 09/08/25 Feeling nervous, anxious, or on edge: 0 = Not at all Not being able to stop or control worryin = Not at all Worrying too much about different things: 0 = Not at all Trouble relaxin = Not at all Being so restless that it is hard to sit still: 0 = Not at all Becoming easily annoyed or irritable: 0 = Not at all Feeling afraid as if something awful might happen: 0 = Not at all Total DANIEL-7 score (0-4 normal; 5-9 mild; 10-14 moderate; 15-21 severe): 0 Source: Developed by Drs. Rafita Welsh, Marii Rodgers, Brennen Ivan and colleagues, with an educational lydia from [employer]. Review of Systems Const Reports headache(s) Eyes Reports no additional complaints ENT Reports headache(s) Card Denies chest pain, Denies edema, Denies lightheadedness and Denies dyspnea Resp Denies dyspnea GI Denies abdominal pain, Reports constipation, Denies diarrhea, Denies nausea and Denies vomiting Reports no additional complaints Musc Reports no additional complaints and Denies abnormal gait Skin/Breast Reports system reviewed and no additional complaints, except as documented Neuro Denies abnormal gait and Reports headache(s) Psych Reports no additional complaints Physical exam (Primary Care) Tobacco/Smoking Status: Tobacco use Status Tobacco use date assessed 07/31/25 07/31/25 13:08 Patient Tobacco Use Status Never used Tobacco 07/31/25 13:08 Tobacco use type Cigarette 07/31/25 13:08 e-Cigarette/Vaping Use Never Used 07/31/25 13:08 Thrive Assessment: Date of Thrive Assessment Date Thrive assessed 07/30/25 08/01/25 09:12 Currently or been in a relationship where the following occur: No concerns reported Const General: cooperative, healthy appearing, comfortable and no acute distress Orientation/consciousness: patient oriented x3 HENMT Head: Yes normocephalic Ears: hearing grossly normal bilaterally General nose exam: Normal external nose present Eyes General: appearance normal, both eyes and all related structures Conjunctivae: conjunctivae normal Neck Neck: Yes full ROM and Yes no lymphadenopathy Resp Effort & Inspection: normal respiratory effort Auscultation: clear to auscultation bilaterally, no crackles, no rales, no rhonchi and no wheezes Cardio Rate: regular rate Rhythm: regular rhythm GI Other: declines rectal exam today Skin General skin exam: no rashes or lesions noted Neuro General: patient oriented x3 Gait exam (Neuro): Normal gait present Extrem General: Yes normal to inspection, Yes full ROM and No edema Psych Affect: normal affect Attitude: cooperative Insight: Good insight present (Psych) Judgement: Good judgement present (Psych) Coding Level of Care Code Est Pt Level 3 (42636) Diagnoses Breast mass in female N63.0 Hemorrhoids K64.9 Headache R51.9 Assessment & Plan Assessment & Plan (1) Breast mass in female: Code(s): N63.0 - Unspecified lump in unspecified breast Category: Medical Plan: The patient was advised to reschedule the missed ultrasound of her right breast to further evaluate the finding from her recent MRI. The plan for a follow-up MRI in six months was acknowledged. (2) Hemorrhoids: Code(s): K64.9 - Unspecified hemorrhoids Category: Medical Plan: A prescription for a Preparation H suppository was sent to the pharmacy to be used overnight to help reduce swelling. To manage constipation, prescriptions were sent for Colace and Senna, which can be taken daily; it was noted these are available [id number] if not covered by insurance. The patient was counseled on increasing water and dietary fiber intake, including prunes, vegetables, and apples. The option of a general surgery referral for hemorrhoidectomy was discussed for persistent or bothersome symptoms, along with the potential risks, and the patient opted to try medical management first. (3) Headache: Code(s): R51.9 - Headache, unspecified Category: Medical Plan: The headaches are suspected to be secondary to eye strain from increased screen time. The patient was advised to schedule an appointment with an trauma program manager for a vision check and a potential new prescription. It was recommended that she try blue light-blocking glasses or screen protectors for her tablet and computer. Plan This note was constructed using voice recognition software. While every effort has been made to ensure accuracy and purchasing administrative assistant, still areas may have been included sometimes these areas may affect the content or meeting of the given symptoms. Total time spent caring for the patient today was 20 minutes. This includes time spent before the visit reviewing the chart, time spent during the visit, and time spent after the visit and documentation. Patient was informed and verbally consented to the use of an ambient scribe for clinic note documentation during this visit. Medications: New docusate sodium (Colace) 100 mg PO DAILY 30 caps 0RF sennosides (senna) 8.6 mg PO BEDTIME PRN 30 caps 0RF constipation hydrocortisone acetate (Anusol-HC) 25 mg ND BEDTIME 12 ea 0RF Refilled cholecalciferol (vitamin D3) 25 mcg PO DAILY 90 caps 3RF
[2025-09-08 08:12] VITALS: BP 130/70; PULSE 78; TEMP 36.3; O2SAT 98; BMI 24.7
== END 2025-09-08 08:44 | disposition home or self-care (01) ==
LOC: HO.HMCH 08:07
DX: N63.0 Unspecified lump in unspecified breast (principal); K64.9 Unspecified hemorrhoids; R51.9 Headache, unspecified

== ENCOUNTER → 2025-09-08 08:06 | Outpatient (BNVA) | payer OTHER, SELFPAY | DX: K64.9 Unspecified hemorrhoids (principal); R51.9 Headache, unspecified; K59.00 Constipation, unspecified; N63.10 Unspecified lump in the right breast, unspecified quadrant; J45.909 Unspecified asthma, uncomplicated; F41.9 Anxiety disorder, unspecified | CPT/HCPCS: 99212 ==

== ENCOUNTER 2025-09-26 07:00 | Outpatient (REF) | payer OTHER, SELFPAY ==
--- NOTE | ~2025-09-26 | US_ITS ---
EXAMINATION: US DIAGNOSTIC ULTRASOUND BREAST, RIGHT CLINICAL INFORMATION: This is an MR directed ultrasound to evaluate right breast enhancing mass that measures 1.2 x 0.6 cm. COMPARISON: Breast MRI on August 15, 2025. TECHNIQUE: Ultrasound of the breast is performed with real-time bernard scale imaging and color Doppler. FINDINGS: Targeted ultrasound was performed at the location of the MR finding located in the upper inner quadrant at approximately 8.8 cm from the nipple of the right breast. The survey shows a 1.1 x 0.6 x 0.9 cm hypoechoic oval solid mass at 2 o'clock position at 8 cm from the nipple. Minimal internal vascularity demonstrated with color Doppler evaluation. Results are provided to the patient at time of visit by the technologist. US/US breast RT limited IMPRESSION: Right breast: Sonographic correlate for the MR finding the right breast is a solid mass at 2 o'clock position at 8 cm from the nipple with benign sonographic features. Probably benign. A 6-month follow-up ultrasound is recommended. ASSESSMENT: Category 3: Probably benign RECOMMENDATION: 6 Month F/U This patient's information was entered into a reminder system with a target due date for their next mammogram. Electronically signed by: Camilla Wu MD 09/26/2025 12:39 PM [facility]
[2025-09-26 07:09] LABS: MANUAL DIFF FLAG NO
[2025-09-26 07:27] LABS: Hematocrit 40.9 % (37.0-47.0); Hemoglobin 12.8 g/dl (12.0-16.0); Imm Gran Abs Auto 0.00 X10*3/uL (0.00-0.03); Imm Gran Pct Auto 0.0 % (0.0-0.4); Lymphocytes Absolute Auto 1.7 X10*3/uL (1.2-4.9); Mean Corpuscular HGB Conc 31.3 g/dl (31.0-35.0); Mean Corpuscular Hemoglobin 25.9 pg (27.0-33.0); Mean Corpuscular Volume 82.8 fL (80.0-98.0); NRBC Abs Auto 0.000 X10*3/uL (0.0-0.012); NRBC Pct Auto 0.0 /100WBC (0.0-0.2); Platelet Count 295 X10*3/uL (160-400); Red Blood Count 4.94 X10*6/uL (4.20-5.50); White Blood Count 3.4 X10*3/uL (4.8-10.8)
[2025-09-26 07:58] LABS: Alanine Aminotransferase 16 U/L (0-31); Albumin Level 4.8 g/dL (3.5-5.0); Alkaline Phosphatase 30 U/L (39-117); Anion Gap 12 (12-20); Aspartate Amino Transferase 27 U/L (5-31); Blood Urea Nitrogen 11 mg/dL (9-16); Calcium 9.5 mg/dL (8.4-10.2); Carbon Dioxide 24 mmol/L (22-29); Chloride 107 mmol/L (96-108); Cholesterol 170 mg/dL (<200); Estimated Glomerular Filt Rate > 60; HDL Cholesterol 52 mg/dL (>40); Potassium 3.6 mmol/L (3.3-5.1); Sodium 139 mmol/L (135-145); Total Protein 7.6 g/dL (6.5-8.0); Triglycerides 72 mg/dL (<150)
[2025-09-26 08:26] LABS: Folate 12.0 ng/mL (> or = 4.0); Vitamin B12 429 pg/mL (200-900)
== END 2025-09-26 07:01 | disposition home or self-care (01) ==
LOC: HO.MAMMO 07:00
DX: Z00.00 Encounter for general adult medical examination without abnormal findings (principal); N63.10 Unspecified lump in the right breast, unspecified quadrant; Z13.29 Encounter for screening for other suspected endocrine disorder; Z13.21 Encounter for screening for nutritional disorder; D64.9 Anemia, unspecified; Z13.220 Encounter for screening for lipoid disorders; R92.8 Other abnormal and inconclusive findings on diagnostic imaging of breast
CPT/HCPCS: 36415; 76642; 80053; 80061; 82306; 82607; 82746; 84443; 85025

== ENCOUNTER → 2025-09-26 10:49 | Outpatient (BNV) | payer OTHER, SELFPAY | PROVIDERS: Visit Provider Radiology Body Imaging | DX: N63.12 Unspecified lump in the right breast, upper inner quadrant (principal) | CPT/HCPCS: 76642 ==